=== PATIENT | male | born 2000 | race African-American/Black ===

== ENCOUNTER → 2024-09-30 | Outpatient (REF) ==
[2024-10-01 14:07] LABS: HERPES ZOSTER, VARICELLA IgG 5.28 S/CO (>=1.00); RUBEOLA IgG ANTIBODY > 300.00 AU/mL (>16.49)
== END ==
LOC: M LAB 12:10
PROVIDERS: ATTEND Nurse Practitioner Adult Health
DX: Z00.00 Encounter for general adult medical examination without abnormal findings (principal)

== ENCOUNTER 2025-08-10 13:06 | Emergency (ER) | payer OTHER ==
[~2025-08-10] VITALS: Ht 185.4 cm; Wt 85.5 kg
[2025-08-10] MEDS: IBUPROFEN 600 MG TAB PO ONE (13:38)
[2025-08-10 14:18] VITALS: BP 119/67; TEMP 97.8; O2SAT 100
== END 2025-08-10 14:27 | disposition home or self-care (01) ==
LOC: M ED 13:06
DX: S20.214A Contusion of middle front wall of thorax, initial encounter (principal); S30.0XXA Contusion of lower back and pelvis, initial encounter; V49.40XA Driver injured in collision with unspecified motor vehicles in traffic accident, initial encounter; Y92.410 Unspecified street and highway as the place of occurrence of the external cause; Y93.89 Activity, other specified; Y99.9 Unspecified external cause status